=== PATIENT | male | born 1935 | race Caucasian/White ===

== ENCOUNTER 2021-03-12 21:06 | Emergency (ER) | payer MEDICARE, SELFPAY ==
--- NOTE | ~2021-03-12 | XR_ITS ---
EXAMINATION: XR chest 2V DATE: 03/12/2021 21:32 INDICATION: COPD presenting with shortness of breath TECHNIQUE: frontal and lateral views of the chest were obtained. COMPARISON: Chest radiograph dated 08/12/2017 FINDINGS: There are new focal airspace opacities in the anterior left upper lobe and posterior basilar right lo wer lobe. No pulmonary edema, pleural effusion or pneumothorax. The cardiomediastinal silhouette is n ormal. Mild scattered degenerative skeletal changes in the spine and at both shoulders. IMPRESSION: 1. New focal airspace opacity left upper and right lower lobes most likely pneumonia. Recommend radio graphic follow-up to resolution. Reviewed, dictated and finalized at location A. IMPRESSION: 1. New focal airspace opacity left upper and right lower lobes most likely pneu monia. Recommend radiographic follow-up to resolution.
[2021-03-12 21:09] VITALS: BP 126/97; PULSE 117; RESP 28; TEMP 36.8; O2SAT 94
--- NOTE | 2021-03-12 21:14 | ECG_ITS ---
Measurements Intervals [place] Rate: 114 P: 71 [place]: 145 QRS: -84 QRSD: 106 T: 83 QT: 335 QTc: 463 Interpretive Statements SINUS TACHYCARDIA INCOMPLETE RIGHT BUNDLE BRANCH BLOCK LEFT ANTERIOR FASCICULAR BLOCK BORDERLINE ST-T WAVE ABNORMALITY- ANTEROLAT/HIGH LAT LEADS BASELINE ARTIFACT- II, III, AVR, AVF, V1-V6 ABNORMAL ECG Electronically Signed On 03-13-2021 8:43:40 CDT by Gian Rivera D.O.
[2021-03-12 21:24] LABS: Basophils Percent Auto 0.2 % (0.2-1.2); Eosinophils Percent Auto 0.2 % (0-4.4); Hematocrit 49.4 % (42.0-52.0); Hemoglobin 16.2 g/dL (14.0-18.0); Immature Granulocyte Absolute 0.08 K/mm3 (0.00-0.031); Immature Granulocyte Percent A 0.5 % (0-0.5); Lymphocytes Absolute Auto 1.03 K/mm3 (0.9-3.2); Lymphocytes Percent Auto 5.8 % (18.3-44.2); Mean Corpuscular HGB Conc 32.8 g/dl (32-36); Mean Corpuscular Hemoglobin 31.5 pg (26-34); Mean Corpuscular Volume 95.9 fl (80-100); Mean Platelet Volume 9.5 fl (7.4-10.4); Monocytes Percent Auto 5.8 % (2.6-8.5); Neutrophils Absolute Auto 15.5 K/mm3 (1.3-6.7); Neutrophils Percent Auto 87.5 % (45.5-73.1); Platelet Count Result 339 k/mm3 (150-375); Red Blood Count 5.15 M/mm3 (4.6-6.20); Red Cell Distribution Width 12.3 % (11.5-14.5); White Blood Count 17.7 K/mm3 (4.5-10.0)
[2021-03-12 21:35] LABS: Anion Gap 9 mmol/L (8-16); Blood Urea Nitrogen 16 mg/dL (9-20); Calcium 9.9 mg/dL (8.4-10.2); Carbon Dioxide 32 mmol/L (22-30); Chloride 100 mmol/L (98-107); Estimated CRCL calculation 35 ml/min; Estimated Glomerular Filt Rate 48; Glucose 116 mg/dL (75-110); Potassium 3.6 mmol/L (3.4-5.0); Sodium 141 mmol/L (137-145)
[2021-03-12] MEDS: methylPREDNISolone SOD SUCC 125 MG VIAL IV PUSH (21:39)
[2021-03-12] MEDS: ALBUTEROL SULFATE NEB 2.5 MG/0.5 ML INH 5 MG INHALATION (21:43)
[2021-03-12 21:44] VITALS: PULSE 104; RESP 22
[2021-03-12] MEDS: IPRATROPIUM BR 0.02% INH SOLN 0.5 MG/2.5 ML VIAL INHALATION (21:44)
[2021-03-12 21:54] LABS: Alanine Aminotransferase 19 U/L (4-50); Albumin Level 4.8 g/dL (3.5-5.1); Alkaline Phosphatase 113 U/L (38-126); Aspartate Amino Transferase 42 U/L (17-59); Bilirubin,Total 1.3 mg/dL (0.2-1.3)
[2021-03-12 21:56] LABS: Lactic Acid Reflex 1.1 mmol/L (0.7-2.1)
[2021-03-12 21:59] VITALS: PULSE 105; RESP 20
[2021-03-12 22:06] LABS: NT Pro B Type Natriuretic Pept 372 PG/ML (5-100); Troponin I < 0.012 ng/mL (0.000-0.034)
[2021-03-12 22:56] VITALS: BP 113/65; PULSE 94; RESP 20; O2SAT 95
--- NOTE | 2021-03-13 00:31 | ED.GENADULT ---
HPI - General Adult General Chief complaint: Shortness of Breath/Dyspnea Stated complaint: SOB Time Seen by Provider: 03/12/21 21:15 History of Present Illness HPI narrative: Patient is a 85-year-old gentleman who presents the emergency department with chief complaint of shortness of breath. The patient reports he has history of COPD reports that he today noticed that he got a little bit more short of breath he had a little bit of a cough. The patient states that been nonproductive denies fever does report that he had to increase his oxygen by about 1 L. Patient states that this been several years since he is required admission the patient states that he has not been exposed to Covid nor has he been vaccinated. Related Data Allergies Allergy/AdvReac Type Severity Reaction Status Date / Time Contrast Media Allergy Mild Rash Uncoded 08/31/14 14:25 Review of Systems Review of Systems: Narrative: A 10 system review of systems was completed on the patient and is negative except for what is stated in the HPI. Nursing and ancillary documentation was reviewed. PMFSH Comments Past medical history significant for COPD the patient is on home oxygen. Social history the patient is a former smoker and quit many years ago Exam Narrative: Exam Narrative: GENERAL: Well-appearing, well-nourished, and in no acute distress. HEAD: Normocephalic, atraumatic. EYES: PERRLA and EOMI. ENT: Nares clear, no rhinorrhea or epistaxis. Mucous membranes moist. NECK: Supple. CHEST: Clear to auscultation. No respiratory distress. HEART: Regular rate and rhythm. No murmur heard. Normal peripheral pulses. ABDOMEN: Soft, nontender, nondistended, normal active bowel sounds. EXTREMITIES: Normal range of motion. No edema. SKIN: Warm, dry, no rash. NEURO: No focal deficits. Alert and oriented x3. PSYCH: Normal mood and affect. Course Vital Signs Vital signs: Vital Signs Temperature 36.8 C 03/12/21 21:09 Pulse Rate 117 H 03/12/21 21:09 Respiratory Rate 28 H 03/12/21 21:09 Blood Pressure 126/97 H 03/12/21 21:09 Pulse Oximetry 94 03/12/21 21:09 Temperature 36.8 C 03/12/21 21:09 Pulse Rate 94 03/12/21 22:56 Respiratory Rate 20 03/12/21 22:56 Blood Pressure 113/65 04/17/21 22:56 Pulse Oximetry 95 03/12/21 22:56 Medical Decision Making Vital Signs Vital Signs: Vital Signs Temperature 36.8 C 03/12/21 21:09 Pulse Rate 117 H 03/12/21 21:09 Respiratory Rate 28 H 03/12/21 21:09 Blood Pressure 126/97 H 03/12/21 21:09 Pulse Oximetry 94 03/12/21 21:09 Temperature 36.8 C 03/12/21 21:09 Pulse Rate 94 03/12/21 22:56 Respiratory Rate 20 03/12/21 22:56 Blood Pressure 113/65 03/12/21 22:56 Pulse Oximetry 95 03/12/21 22:56 Lab Data Result diagrams: 03/12/21 21:19 03/12/21 21:19 Labs: Lab Results 03/12/21 03/12/21 03/12/21 Range/Units 21:19 21:19 21:19 WBC 17.7 H (4.5-10.0) K/mm3 RBC 5.15 (4.6-6.20) M/mm3 Hgb 16.2 (14.0-18.0) g/dL Hct 49.4 (42.0-52.0) % MCV 95.9 (80-100) fl MCH 31.5 (26-34) pg MCHC 32.8 (32-36) g/dl RDW 12.3 (11.5-14.5) % Plt Count 339 (150-375) k/mm3 MPV 9.5 (7.4-10.4) fl Immature Gran % (Auto) 0.5 (0-0.5) % Neut % (Auto) 87.5 H (45.5-73.1) % Lymph % (Auto) 5.8 L (18.3-44.2) % [place] % (Auto) 5.8 (2.6-8.5) % Eos % (Auto) 0.2 (0-4.4) % Baso % (Auto) 0.2 (0.2-1.2) % Lymph # (Auto) 1.03 (0.9-3.2) K/mm3 [place] # (Auto) 1.0 H (0.1-0.6) K/mm3 Eos # (Auto) 0.0 (0-0.3) K/mm3 Baso # (Auto) 0.0 (0.0-0.1) K/mm3 Abs Immat Gran (auto) 0.08 H (0.00-0.031) K/mm3 Absolute Neuts (auto) 15.5 H (1.3-6.7) K/mm3 Absolute Nucleated RBC 0.0 (0.0-0.012) K/mm3 Nucleated RBC % 0.0 (0.0-0.2) % Sodium 141 (137-145) mmol/L Potassium 3.6 (3.4-5.0) mmol/L Chloride 100 (98-107) mmol/L Carbon Dioxide 32 H (22-30) mmol/L Anio
[2021-03-13] MEDS: ALBUTEROL SULFATE (*SP) INHALER 2 PUFF INHALATION (00:52)
[2021-03-13 01:02] VITALS: BP 108/64; PULSE 98; RESP 20; TEMP 36.8; O2SAT 95
== END 2021-03-13 01:03 | disposition home or self-care (01) ==
PROVIDERS: Emergency Provider Emergency Medicine; PCP Family Medicine
DX: J44.1 Chronic obstructive pulmonary disease with (acute) exacerbation (principal); J18.9 Pneumonia, unspecified organism; J44.0 Chronic obstructive pulmonary disease with (acute) lower respiratory infection; Z99.81 Dependence on supplemental oxygen; I45.2 Bifascicular block; R00.0 Tachycardia, unspecified; R94.31 Abnormal electrocardiogram [ECG] [EKG]; Z87.891 Personal history of nicotine dependence
CPT/HCPCS: 36415; 71046; 80048; 80076; 83605; 83880; 84484; 85025; 87040; 93005; 94640; 96374; 99284; A9270; J2930

== ENCOUNTER → 2021-04-19 09:31 | Outpatient (CLI) | payer MEDICARE, SELFPAY ==
--- NOTE | ~2021-04-19 | CT_ITS ---
EXAMINATION: CT diagnostic chest wo con DATE: 04/19/2021 09:53 INDICATION: COPD, pneumonia, history of kidney and colon cancer TECHNIQUE: Computed tomography (CT) of the chest was performed without intravenous contrast. The dose -length product (DLP) was 373.57 mGy-cm. Automated exposure control and iterative reconstruction tech [employer] were employed. COMPARISON: 09/01/2014; chest radiograph, 03/12/2021 FINDINGS: There is moderate emphysema. There are airspace opacities of the left upper lobe. Airspace opacity appears slightly improved compared to the radiograph but direct comparison is difficult. Ther e is an area of chronic scarring in the right lower lobe. No pleural effusion or pneumothorax is iden tified. No pathologically enlarged thoracic lymph nodes are identified. The heart size is normal. Gregg cified coronary artery atherosclerosis is noted. There are healed right-sided rib fractures. IMPRESSION: 1. Left upper lobe airspace opacities with probable slight improvement compared to the recent chest r adiograph, likely resolving infection. Recommend follow-up CT in three months as underlying malignanc y could be obscured. 2. Moderate emphysema. Reviewed, dictated and finalized at location A. IMPRESSION: 1. Left upper lobe airspace opacities with probable slight improvement compared to the recent chest radiograph, likely resolving infection. Recommend follow-u p CT in three months as underlying malignancy could be obscured. 2. Moderate emphysema.
== END ==
PROVIDERS: PCP Family Medicine; Visit Provider Family Medicine
DX: J18.9 Pneumonia, unspecified organism (principal); J43.9 Emphysema, unspecified
CPT/HCPCS: 71250

== ENCOUNTER → 2021-08-10 09:41 | Outpatient (CLI) | payer MEDICARE, SELFPAY ==
--- NOTE | ~2021-08-10 | CT_ITS ---
EXAMINATION: CT diagnostic chest wo con EXAM DATE: 08/10/2021 14:27 INDICATION: Pneumonia follow-up. Shortness of breath. Colon and kidney cancer. TECHNIQUE: Spiral CT of the chest without contrast. Axial, coronal and sagittal images of the chest were reviewed. Coronal maximum intensity pixel images of chest reviewed. The dose-length product ( DLP) for this examination was 287 mGy-cm. The exposure was tailored according to patient size (auto mA exposure control), and iterative reconstruction (ASIR) was used as additional dose reduction techn ique. Comparison is made to prior examination from 04/19/2021. FINDINGS: There is enlargement of previously seen left upper lobe opacity with ill-defined margins, confluent region measuring about 3 x 4 cm today. Pneumonia should have resolved by this time. Differe ntial diagnosis includes cancer, cryptogenic organizing pneumonia. There is mild emphysema. Small pericardial effusion. Tracheobronchial tree is patent. There is no mediastinal, hilar or axi llary lymphadenopathy. There is no pneumothorax. Heart normal in size. There is moderate rachel ry arterial calcification, arterial sclerosis. There is small sliding gastroesophageal hiatal hernia. There is thoracic spondylosis without osteoblastic or osteolytic lesions identified. IMPRESSION: 1. Increase in size of left upper lobe opacity which increases likelihood of this being malignancy. CT-guided biopsy recommended. 2. Mild emphysema. I left a message for Dr. Paul at 08/10/2021 13:51 CDT. I provided my direct number for call back t o discuss findings in this case. Reviewed, dictated and finalized at location B. IMPRESSION: 1. Increase in size of left upper lobe opacity which increases likelihood of t his being malignancy. CT-guided biopsy recommended. 2. Mild emphysema. I left a message for Dr. Paul at 08/10/2021 13:51 CDT. I provided my direct number for call back to discuss findings in this case.
== END ==
PROVIDERS: PCP Family Medicine; Visit Provider Family Medicine
DX: J18.9 Pneumonia, unspecified organism (principal)
CPT/HCPCS: 71250

== ENCOUNTER → 2021-08-16 03:37 | Outpatient (CLI) | payer MEDICARE, SELFPAY ==
[2021-08-16 18:18] LABS: SARS-CoV-2 RNA PCR Negative
== END ==
PROVIDERS: PCP Family Medicine; Visit Provider Radiology Diagnostic Radiology
DX: Z01.812 Encounter for preprocedural laboratory examination (principal); Z20.822 Contact with and (suspected) exposure to COVID-19
CPT/HCPCS: C9803; U0003; U0005

== ENCOUNTER 2021-08-19 09:09 | Outpatient (CLI) | payer MEDICARE, SELFPAY ==
[2021-08-15 09:40] VITALS: BMI 26.4
--- NOTE | ~2021-08-19 | CT_ITS ---
EXAMINATION: Consultation CT DATE: 08/19/2021 The patient presented for a lung biopsy for his left upper lobe mass. He is on home oxygen, and I do not consider him a candidate for percutaneous biopsy due to the high risk of life-threatening pneumot horax. In my opinion, the mass may be primary lung cancer or less likely infection. I discussed this with the patient, and he understood. I encouraged the patient to discuss options with his physician. For example, a 3-month CT may change the probability of cancer thereby allowing for management withou t a biopsy. Reviewed, dictated and finalized at location A.
[2021-08-19 10:01] LABS: INR 0.9; Prothrombin Time 12.4 Seconds (11.1-14.7)
[2021-08-19 12:37] LABS: Mean Platelet Volume 10.1 fl (7.4-10.4); Platelet Count Result 295 k/mm3 (150-375)
== END 2021-08-19 09:10 | disposition home or self-care (01) ==
PROVIDERS: PCP Family Medicine; Visit Provider Radiology Diagnostic Radiology
DX: Z01.812 Encounter for preprocedural laboratory examination (principal); R93.89 Abnormal findings on diagnostic imaging of other specified body structures; Z53.09 Procedure and treatment not carried out because of other contraindication; Z99.81 Dependence on supplemental oxygen
CPT/HCPCS: 36415; 85049; 85610; 99199

== ENCOUNTER → 2022-02-06 10:00 | Outpatient (CLI) | payer MEDICARE, SELFPAY ==
--- NOTE | ~2022-02-06 | CT_ITS ---
EXAMINATION:CT diagnostic chest wo con DATE: 02/06/2022 10:13 INDICATION: Lung mass. TECHNIQUE: Computed tomography (CT) of the chest was performed without intravenous contrast. Automate d exposure control and iterative reconstruction technique were employed. The dose-length product (DLP ) was 105.06 mGy-cm. COMPARISON: Chest CT 08/10/2021, 04/19/2021, 09/01/2014 FINDINGS: There is severe emphysema. There is mild atelectasis bilaterally. In the left upper lobe, t here is a 7.3 x 4.5 cm predominantly solid mass, increased from 6.2 x 4.5 cm. There are multiple new nodules in left upper lobe measuring up to 6 mm. There are 10 mm and 5 mm nodules in left lower lobe with interval worsening. No pleural effusion. The heart size is normal. There are coronary artery mariana cifications. No pericardial effusion. There is mild bilateral gynecomastia. There is a small sliding hiatal hernia. There are changes of right nephrectomy. There is mild thoracic spondylosis. There is m ild chronic anterior wedging of T11-L1 vertebral bodies. IMPRESSION: 1. Worsened mass in left lung upper lobe and worsened pulmonary nodules, consistent with primary bron chogenic carcinoma and metastatic disease. 2. Severe emphysema. Reviewed, dictated and finalized at location A. IMPRESSION: 1. Worsened mass in left lung upper lobe and worsened pulmonary nodules, consis tent with primary bronchogenic carcinoma and metastatic disease. 2. Severe emphysema.
== END ==
PROVIDERS: PCP Physician Assistant; Visit Provider Physician Assistant
DX: R91.8 Other nonspecific abnormal finding of lung field (principal); J43.9 Emphysema, unspecified; M47.814 Spondylosis without myelopathy or radiculopathy, thoracic region; M48.55XA Collapsed vertebra, not elsewhere classified, thoracolumbar region, initial encounter for fracture
CPT/HCPCS: 71250

== ENCOUNTER → 2022-07-10 13:55 | Outpatient (CLI) | payer MEDICARE, SELFPAY ==
--- NOTE | ~2022-07-10 | CT_ITS ---
EXAMINATION: CT abdomen pelvis wo con DATE: 07/10/2022 14:17 INDICATION: Diarrhea. Occasional generalized abdominal pain. History of colon and kidney cancer. TECHNIQUE: Computed tomography (CT) of the abdomen and pelvis was performed without intravenous contr ast. Automated exposure control and iterative reconstruction technique were employed. Exam dose: 663 .31 mGy-cm total exam DLP. COMPARISON: 09/01/2014 CT chest abdomen pelvis FINDINGS: There is a spiculated 1.5 cm posterior basilar right lower lobe lung mass and several adjac ent smaller spiculated masses measuring up to approximately 8.8 and 7.4 mm dimension. Primary lung ma lignancy with satellite metastases or multiple synchronous lung cancers are suspected; less likely wo uld be metastases from primary neoplasm elsewhere. Emphysematous changes of the lungs. Normal heart size. Trace pericardial fluid. Small sliding hiatal hernia. There are at least several 5 mm or smaller scattered hepatic hypoattenuating lesions, too small to de finitively characterize. Differential diagnosis includes hepatic cysts, hemangiomas and/or metastases . The gallbladder is present. No gallbladder wall thickening or pericholecystic fluid or fat stranding. No bile duct or pancreatic duct dilatation. Several pancreatic calcifications, consistent with chron ic pancreatitis. Normal splenic size. Normal morphology of the adrenal glands. Status post right nephrectomy. No left renal mass lesion. There is left renal artery calcification. No left urinary tract calculus o r hydroureteronephrosis is detected. There is moderate diffuse thickening of the urinary bladder wall, likely due to prominent prostatomeg geovani. There are some prostate calcifications as well. Diverticulosis of the colon; no CT evidence of diverticulitis. No bowel obstruction, bowel wall thick ening, pneumatosis or intraperitoneal free air is detected. There is atherosclerotic calcification of the abdominal aorta but no aneurysm. No intraperitoneal or retroperitoneal or pelvic mass lesion or adenopathy or ascites is detected. Osteopenia. Moderate L1 compression fracture deformity. Severe degenerative disc disease at L5-S1. IMPRESSION: Multiple spiculated left lower lobe masses, highly suggestive of lung cancer, possibly s ynchronous and/or metastatic. The largest measures 1.5 cm. Emphysema Small sliding hiatal hernia Nonspecific 5 mm or smaller occasional hepatic hypoattenuating lesions, too small to definitively fani racterize Status post right nephrectomy Diverticulosis of the colon Compression fracture of L1 Severe degenerative disc disease at L5-S1 Reviewed, dictated and finalized at Location A. Reviewed, dictated and finalized at location A. IMPRESSION: Multiple spiculated left lower lobe masses, highly suggestive of l moshe cancer, possibly synchronous and/or metastatic. The largest measures 1.5 cm . Emphysema Small sliding hiatal hernia Nonspecific 5 mm or smaller occasional hepatic hypoattenuating lesions, too sma ll to definitively characterize Status post right nephrectomy Diverticulosis of the colon Compression fracture of L1 Severe degenerative disc disease at L5-S1
== END ==
PROVIDERS: PCP Physician Assistant; Visit Provider Physician Assistant
DX: R19.7 Diarrhea, unspecified (principal); J43.9 Emphysema, unspecified; K44.9 Diaphragmatic hernia without obstruction or gangrene; K57.30 Diverticulosis of large intestine without perforation or abscess without bleeding; M51.37 Other intervertebral disc degeneration, lumbosacral region; S32.010A Wedge compression fracture of first lumbar vertebra, initial encounter for closed fracture; X58.XXXA Exposure to other specified factors, initial encounter
CPT/HCPCS: 74176

== ENCOUNTER → 2022-11-02 08:40 | Outpatient (CLI) | payer MEDICARE, SELFPAY ==
--- NOTE | ~2022-11-02 | CT_ITS ---
EXAMINATION: CTA chest PE protocol DATE: 11/02/2022 09:52 INDICATION: Pleurodynia. TECHNIQUE: Computed tomography angiography (CTA) of the chest was performed with 100 mL Omnipaque-350 intravenous contrast timed to evaluate the pulmonary arteries. Coronal maximum intensity projection 3D-reconstructions were created by the technologist. Automated exposure control and iterative reconst ruction technique were employed. The dose-length product was 347.94 mGy-cm. COMPARISON: Chest CT 02/06/2022, CT abdomen and pelvis 07/10/2022 FINDINGS: There is moderate emphysema. There is mild atelectasis bilaterally. In the left upper lobe, there is an 8.0 x 8.1 cm perihilar mass. There is an 8 mm nodule in left upper lobe. There are 12 mm and 18 mm nodules in left lower lobe. No pleural effusion. There is a small sliding hiatal hernia. T he heart size is normal. There is a small pericardial effusion. There are coronary artery calcificati ons. There is no pulmonary embolus. There is bilateral gynecomastia. There are changes of right nephr ectomy. There are cysts in the liver measuring up to 6 mm. There are hypodense masses in the liver me asuring up to 1.5 cm. There is a permeative lytic lesion in anterior left third rib with pathologic f racture. There is a permeative lytic lesion of left eighth rib with healing pathologic fracture. Ther e is a lytic lesion of T4 vertebral body with pathologic compression fracture. There are lytic lesion s in T10, T11, T12, and L1 vertebral bodies. There is a worsened pathologic compression fracture of L 1. There is chronic anterior wedging of T11 vertebral body. IMPRESSION: 1. Worsened mass in left lung upper lobe, consistent with primary bronchogenic carcinoma and postobst ructive pneumonia. 2. Worsened pulmonary nodules and worsening bone lesions, consistent with metastatic disease. 3. Pathologic fractures of left third and eighth ribs and T4 and L1 vertebral bodies. 4. Worsened liver masses, likely metastatic disease. 5. No pulmonary embolus. Reviewed, dictated and finalized at location E. [employer] IMPRESSION: 1. Worsened mass in left lung upper lobe, consistent with primary bronchogenic carcinoma and postobstructive pneumonia. 2. Worsened pulmonary nodules and worsening bone lesions, consistent with metas tatic disease. 3. Pathologic fractures of left third and eighth ribs and T4 and L1 vertebral b odies. 4. Worsened liver masses, likely metastatic disease. 5. No pulmonary embolus.
[2022-11-02 09:44] LABS: Estimated Glomerular Filt Rate 44
== END ==
PROVIDERS: PCP Family Medicine; Visit Provider Family Medicine
DX: R07.81 Pleurodynia (principal); M84.48XA Pathological fracture, other site, initial encounter for fracture; R91.8 Other nonspecific abnormal finding of lung field
CPT/HCPCS: 71275; Q9967

== ENCOUNTER 2023-01-28 13:02 | Observation (INO) | payer MEDICARE, SELFPAY ==
[2023-01-28] VITALS (8 sets, daily range): BP systolic 111–123; BP diastolic 70–82; PULSE 94–109; RESP 18–22; TEMP 36.2–36.6; O2SAT 97–98; BMI 21.1
--- NOTE | ~2023-01-28 | CT_ITS ---
EXAMINATION: CT brain wo con DATE: 01/28/2023 13:37 INDICATION: Left facial weakness. TECHNIQUE: Computed tomography (CT) of the head was performed without intravenous contrast. The mA wa s adjusted according to patient size. Iterative reconstruction technique was employed. The dose-lengt h product was 605.33 mGy-cm. COMPARISON: Head CT 10/31/2007 FINDINGS: There is a small old infarct in left cerebellum. There is an infarct in right frontal lobe. There is an old infarct in the left basal ganglia. There are scattered areas of low attenuation in t he cerebral white matter, which is within normal limits for the patient's age. There is no intracrani al hemorrhage or abnormal mass lesion. The ventricles are normal in size. There are likely changes of left ocular lens replacement surgery. There is mild mucosal thickening in the paranasal sinuses. The mastoid air cells are normal. IMPRESSION: 1. Infarct in right frontal lobe, likely acute or subacute. 2. Small old infarcts in the left basal ganglia and left cerebellum. Reviewed, dictated and finalized at location A. DATA ARCHITECT
--- NOTE | ~2023-01-28 | XR_ITS ---
EXAMINATION: XR chest 2V DATE: 01/28/2023 13:44 INDICATION: Left facial weakness. Slurred speech. TECHNIQUE: Frontal and lateral views of the chest were obtained. COMPARISON: Chest 2 views 03/12/2021, chest CT 11/02/2022 FINDINGS: There is a mass in left upper lobe. There is mild atelectasis in left upper lobe. There are nodules in basilar left lower lobe. No pleural effusion or pneumothorax. The heart size is normal. T here is a pathologic burst fracture of T4. IMPRESSION: 1. Mass in left lung upper lobe and nodules in left lung lower lobe, consistent with primary bronchog enic carcinoma and metastatic disease. 2. Pathologic burst fracture of T4 again seen. Reviewed, dictated and finalized at location A. TOMETRIST IMPRESSION: 1. Mass in left lung upper lobe and nodules in left lung lower lobe, consistent with primary bronchogenic carcinoma and metastatic disease. 2. Pathologic burst fracture of T4 again seen.
--- NOTE | 2023-01-28 13:23 | ECG_ITS ---
Measurements Intervals [place] Rate: 93 P: 80 [place]: 134 QRS: -84 QRSD: 98 T: 87 QT: 369 QTc: 460 Interpretive Statements SINUS RHYTHM LEFT ANTERIOR FASCICULAR BLOCK BORDERLINE T WAVE ABNORMALITY- HIGH LATERAL LEADS BASELINE ARTIFACT- I, III, AVR, AVL, AVF ABNORMAL ECG COMPARED TO ECG 03/12/2021 21:13:29 SINUS RHYTHM NOW PRESENT Electronically Signed On 01-28-2023 17:43:30 [employer] by Gian Rivera D.O.
[2023-01-28] MEDS: MORPHINE SULFATE (*CRX) 4 MG/ML INJ IV PUSH (14:15)
[2023-01-28 14:19] LABS: Basophils Absolute Auto 0.1 K/mm3 (0.0-0.1); Basophils Percent Auto 0.4 % (0.2-1.2); Eosinophils Absolute Auto 0.6 K/mm3 (0-0.3); Eosinophils Percent Auto 4.3 % (0-4.4); Hemoglobin 12.8 g/dL (14.0-18.0); Immature Granulocyte Absolute 0.17 K/mm3 (0.00-0.031); Immature Granulocyte Percent A 1.2 % (0-0.5); Lymphocytes Absolute Auto 0.84 K/mm3 (0.9-3.2); Mean Corpuscular Hemoglobin 29.7 pg (26-34); Mean Corpuscular Volume 92.8 fl (80-100); Mean Platelet Volume 9.2 fl (7.4-10.4); Monocytes Absolute Auto 1.1 K/mm3 (0.1-0.6); Neutrophils Absolute Auto 11.3 K/mm3 (1.3-6.7); Neutrophils Percent Auto 80.1 % (45.5-73.1); Platelet Count Result 235 k/mm3 (150-375); Red Blood Count 4.31 M/mm3 (4.6-6.20); Red Cell Distribution Width 14.2 % (11.5-14.5); White Blood Count 14.1 K/mm3 (4.5-10.0)
--- NOTE | 2023-01-28 14:20 | ED.NEUROSD ---
HPI - Neuro Symptoms/Deficit General Chief Complaint: Neuro Symptoms/Deficit Stated Complaint: neuro symptoms Time Seen by Provider: 01/28/23 13:05 History of Present Illness HPI Narrative: Patient is an 87-year-old male who presents to the ER with concerns for CVA. Last known well yesterday evening. Patient did take some medicine at 6 AM. He woke up around 9 AM and it was noted that he had left facial weakness. He is having difficulty speaking. Patient recently signed paperwork with hospice due to him having COPD and metastatic lung cancer. He is known to have vertebral compression fractures from bony mets. Though paperwork has been signed in the last 3 days has not yet been processed and so he was instructed to come to the ER. He is affiliated with [facility]. Denies arm or leg weakness. No expressive aphasia. Related Data Home Medications Medication Instructions Recorded Confirmed atorvastatin 40 mg tablet 40 mg PO QAM 08/15/21 08/15/21 finasteride 5 mg tablet 5 mg PO DAILY 08/15/21 08/15/21 fluticasone 250 mcg-salmeterol 50 1 inh inhalation BID 08/15/21 08/15/21 mcg/dose blistr powdr for inhalation (Wixela Inhub) indapamide 1.25 mg tablet 1.25 mg PO DAILY 08/15/21 08/15/21 lactobacillus combination no.4 3 3,000 mmu cells PO DAILY 08/15/21 08/15/21 billion cell capsule (Probiotic) lisinopril 5 mg tablet 5 mg PO PRN PRN Hypertension 08/15/21 08/15/21 omeprazole 20 mg capsule,delayed 20 mg PO DAILY 08/15/21 08/15/21 release potassium chloride 20 mEq 20 meq PO DAILY 08/15/21 08/15/21 tablet,extended release(part/cryst) Allergies Allergy/AdvReac Type Severity Reaction Status Date / Time Contrast Media Allergy Mild Rash Uncoded 08/15/21 09:23 Review of Systems Review of Systems: All systems reviewed & are unremarkable except as noted in HPI and below Constitutional: Constitutional: Denies chills and Denies fever(s) Cardiovascular: Cardiovascular: Denies chest pain, Denies rapid heart rate and Denies radiating jaw, neck or arm pain Respiratory: Respiratory: Denies cough and Denies dyspnea Gastrointestinal: Gastrointestinal: Denies abdominal pain, Denies nausea and Denies vomiting Neurologic: Denies headache(s), Reports focal weakness and Denies numbness Comments: Dysarthria PMFSH Past Medical History Medical History (Updated 01/28/23 @ 16:39 by James Sweet MD) Stage 4 lung cancer Exam Narrative: GENERAL: Chronically ill-appearing, well-nourished, and in no acute distress. HEAD: Normocephalic, atraumatic. EYES: PERRL and EOMI. ENT: Mucous membranes moist. Left facial droop. NECK: Supple. CHEST: Clear to auscultation. No respiratory distress. HEART: Regular rate and rhythm. Normal peripheral pulses. ABDOMEN: Soft, nontender, nondistended. EXTREMITIES: Normal range of motion. No edema. SKIN: Warm, dry, no rash. NEURO: Left-sided facial droop with slurred speech. No upper or lower extremity drift. Alert and oriented x3. Course Course Emergency Course: Patient outside the window for tPA. Family and patient do not want aggressive interventions as he is supposed to be starting hospice. Plan is to admit for observation and so he can have a swallow study and PT/OT to make sure he has all of his needs filled when he goes on hospice. Patient accepted by the hospitalist service. Vital Signs Vital signs: Vital Signs Temperature 97.9 F 01/28/23 13:04 Pulse Rate 109 H 01/28/23 13:04 Respiratory Rate 20 01/28/23 13:04 Blood Pressure 121/80 01/28/23 13:04 Pulse Oximetry 97 01/28/23 13:04 Oxygen Delivery Nasal Cannula 01/28/23 13:04 Oxygen Flow Rate 2 01/28/23 13:04 Temperature 97.9 F 01/28/23 13:04 Pulse Rate 94 01/28/23 15:44 Respiratory Rate 18 01/28/23 15:44 Blood Pressure 123/77 01/28/23 15:44 Pulse Oximetry 98 01/28/23 15:44 Oxygen Delivery Nasal Cannula 01/28/23 13:04 Oxygen Flow Rate 2 01/28/23 13:09 [facility] - Neuro S
[2023-01-28 14:29] LABS: INR 1.2; Prothrombin Time 14.3 Seconds (11.1-14.7)
[2023-01-28 14:30] LABS: Partial Thromboplastin Time 31.7 SECONDS (22.3-36.8)
[2023-01-28 14:39] LABS: Alanine Aminotransferase 26 U/L (6-50); Albumin Level 3.6 g/dL (3.5-5.1); Alkaline Phosphatase 770 U/L (38-126); Anion Gap 5 mmol/L (8-16); Aspartate Amino Transferase 100 U/L (17-59); Bilirubin,Total 0.7 mg/dL (0.2-1.3); Blood Urea Nitrogen 25 mg/dL (9-20); Calcium 8.8 mg/dL (8.4-10.2); Carbon Dioxide 31 mmol/L (22-30); Chloride 97 mmol/L (98-107); Estimated CRCL calculation 48 ml/min; Estimated Glomerular Filt Rate > 60; Glucose 119 mg/dL (65-110); Potassium 3.9 mmol/L (3.4-5.0); Sodium 133 mmol/L (137-145)
--- NOTE | 2023-01-28 14:45 | PM.IMHP ---
H&P: HPI History of Present Illness Date/Time: 01/28/23 14:45 Chief Complaint: Slurred speech and left face droop. Narrative: This is a very pleasant 87-year-old male with stage IV lung cancer, COPD, hypertension, and other comorbidities who presented to the emergency department via EMS from home for evaluation of slurred speech and left face droop. Patient provides the following history. His son and daughter who are at bedside provides additional information with the patient's permission. He was diagnosed with lung cancer couple of years ago in opted against treatment. He has lost about 40 lb since that time and his appetite has become increasingly poor. He started to develop skeletal pain and was found to have bony metastases for which he was initially started on oxycodone though that does not seem to help him much and he has now been taking acetaminophen and THC oil. His daughter and son are now helping care for him in his own house and they have recently reached out to [facility]. In any event, daughter wakes him up at 6 am every morning to give him his scheduled Tylenol and he seemed to do okay at that time. At about 09:00 she checked in on him and thought the left side of his mouth appeared droopy. At 10:00 she got him up for the day and gave him his THC oil. It was at that time that he seemed to be having slurred speech and patient reports that his tongue feels thick. They phoned [facility] who referred him to the ER as they have not yet completed his paperwork. Brain CT showed an infarct in the right frontal lobe which is likely acute or subacute; small old infarcts were noted in the left basal ganglia and cerebellum. This was discussed with the patient and his children and they agree that pursuing a stroke workup would be moot point as he is going to be signing up with hospice in the next couple of days. There is some reluctance for discharge home today however given the new stroke; they would like to observe him overnight to ensure it does not worsen as he may need more care than what they can provide at home. At the time my evaluation the patient has no specific complaints. He denies vertigo, visual changes, paresthesias, focal weakness, and difficulty swallowing. Review of Systems Review of Systems: Twelve systems were reviewed. No fever, chills, or sweats. He does have a wet sounding cough which is rarely productive. Daughter is a retired respiratory therapist and she has been encouraging him to use incentive spirometry and Acapella valve though he does not really like that. He denies chest pain shortness and breath. Appetite has been poor with some nausea. He denies vomiting and diarrhea. Except as documented, all other systems were reviewed and are negative. 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 Surgical History Surgical History (Updated 01/28/23 @ 21:06 by Ana María Lockhart PA-C) History of cataract extraction History of colonoscopy with polypectomy (1990) Malignant polyp, completely excised. History of right nephrectomy (06/2004) Family History Family History (Updated 01/28/23 @ 21:06 by Ana María Lockhart PA-C) Father Heart disease Colon cancer Mother Heart disease Social History Social History (Updated 01/28/23 @ 21:08 by Ana María Lockhart PA-C) Social History: Surrogate medical decision maker: Jayson Hamilton (son) or Josselyn Ladd (daughter). Code status: Do not resuscitate. Smoking packs per day: 2.5 Smoking cigarettes per day: 50.0 Years smoked: 30 Smoking pack-years: 75.00 Smoking status: Former smoker Tobacco type: cigarettes Additional smok
[2023-01-28 14:56] LABS: Troponin I 0.054 ng/mL (0.000-0.034)
--- NOTE | 2023-01-28 16:05 | ADMGEN ---
This patient, Bakari Hamilton, was admitted to Medical Room 342-01. Patient/family oriented to hospital policies and general routines including ID bracelet, bed and alarms, visiting hours, pain management, procedures, bathroom and other care routines, personal items, smoking policy, room service/diet, and visiting hours. Information on how to activate the Rapid Response Team has been discussed. Patient/Family are encouraged to report perceived risks to care and to ask questions if they do not understand what they are told or what they should do.
[2023-01-28] MEDS: ASPIRIN 81 MG CHEWABLE TABLET 324 MG PO (17:39)
[2023-01-28] MEDS: SODIUM CHLORIDE 0.9% IV 1,000 ML 125 ML IV CONT (17:48)
[2023-01-29] VITALS: PULSE 94
[2023-01-29] MEDS: SODIUM CHLORIDE 0.9% IV 1,000 ML 125 ML IV CONT ×2 (05:18→09:26)
[2023-01-29] MEDS: ONDANSETRON INJ 4 MG/2 ML VIAL IV PUSH (05:25)
[2023-01-29 06:00] VITALS: BP 114/60; PULSE 84; RESP 20; TEMP 36.6; O2SAT 98
[2023-01-29 06:15] LABS: Glucose Point of Care 111 mg/dl (65-105)
[2023-01-29 07:05] VITALS: PULSE 90; RESP 18; O2SAT 90
[2023-01-29] MEDS: FLUTICASONE/SALMETEROL 115-21 MCG INHALER 1 PUFF 2 PUFF INHALATION (07:05)
[2023-01-29] MEDS: ASPIRIN 81 MG ENTERIC TABLET PO (09:27)
[2023-01-29] MEDS: ATORVASTATIN 40 MG TABLET PO (09:28)
[2023-01-29] MEDS: FINASTERIDE 5 MG TABLET PO (09:28)
[2023-01-29] MEDS: ACIDOPHILUS/BULGARICUS CHEWABLE TABLET 1 TABLET BY MOUTH (09:28)
[2023-01-29] MEDS: PANTOPRAZOLE 40 MG TABLET PO (09:28)
[2023-01-29 11:40] VITALS: BMI 21.1
--- NOTE | 2023-01-29 11:42 | PCSTNOTE ---
Please refer to the Bedside Swallow Evaluation in the EMR. Please note, silent aspiration cannot be ruled out at bedside.
[2023-01-29 14:00] VITALS: BP 133/75; PULSE 96; RESP 16; TEMP 37.1; O2SAT 95
--- NOTE | 2023-01-29 14:03 | PM.DS ---
DS: Admitting Diagnosis Discharge Date 01/29/2023 Admitting Diagnosis CVA DS: Discharge Diagnosis Discharge Diagnosis (1) Cerebrovascular accident: Code(s): I63.9 - Cerebral infarction, unspecified Status: Acute Assessment and Plan: presented all slurred speech and facial droop several hours prior to evaluation. head CT showed infarct in the right frontal lobe, acute versus subacute. D received aspirin. No further workup was pursued as patient was in the process of signing with hospice due to his metastatic lung cancer. continue aspirin 81 mg daily. He did participated in PT/ OT /is T for evaluation to ensure patient was stable to return home. No ongoing PT/ OT requirements. Speech therapy recommended soft and bite size diet which patient will continue. 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 Patient was in the process of sign with hospice prior to admission. Hospice care was finalized patient was discharged to home with hospice care DS: Summary Hospital Course Hospital Course: date of admission: 01/28/2023 date of discharge: 01/29/2023 Bakari Hamilton is an 87-year-old male with a history of colon cancer, stage IV lung cancer with bony mets, chronic respiratory failure on home oxygen, diastolic dysfunction, hypertension, hyperlipidemia, and CKD who presented to the emergency department on 01/28/2023 with complaints of left facial weakness and trouble speaking. he was in the process of signing with [facility] due to his severe COPD and metastatic lung cancer. on presentation to the ED, he was mildly tachycardic, additional vital signs were stable, WBC 14.1, BMP unremarkable, troponin mildly elevated at 0.[address] showed infarct of the right frontal lobe with old infarcts in the left basal ganglia and left cerebellum and CXR showed findings consistent with primary bronchogenic carcinoma and pathologic burst fracture of T4. He was admitted to the hospitalist service for further evaluation and management. he participated in PT/OT/ST during admission. Recommendations to continue level 6 soft and bite size diet with regular liquids. He does have poor appetite, however this has been an ongoing issue. recommend addition of dietary supplements such as Ensure. He was started on aspirin therapy for acute stroke. Further laboratory evaluation including lipid panel was deferred and statin therapy not initiated given transition to hospice care. Home hospice care was arranged and patient was discharged in hemodynamically stable condition to [facility] on 01/29/2023 Time Spent with Patient Time attestation: Total time spent providing and/or coordinating discharge services: 45 minutes Exam Narrative: General: well-nourished, chronically ill-appearing 87-year-old male, sitting up in bed, comfortable, NARD Neuro: awake, alert and oriented x4, speech clear, no focal neuro deficits noted HEENMT: normocephalic, atraumatic, EOMI, sclerae anicteric, moist oral mucosa Respiratory: clear to auscultation anteriorly, nonlabored breathing Cardio: regular rate, regular rhythm with S1-S2 Abdomen: nondistended, normoactive bowel sounds, soft, nontender to palpation Extremities: no edema, erythema, or tenderness to palpation Skin: no rashes or lesions, warm and dry Psych: appropriate mood and affect, judgment and insight intact DS: Data Data Completed and Pending Labs on day of discharge: Labs from last 24 hours 01/29/23 01/28/23 01/28/23 05:24 14:12 14:12 WBC RBC Hgb Hct MCV MCH MCHC RDW Plt Count MPV Immature Gran % (Auto) Neut % (Auto) Lymph % (Auto) [place] % (Auto) Eos % (Auto) Baso % (Auto) Lymph # (Auto) [place] # (Auto)
== END 2023-01-29 17:05 | disposition hospice, home (50) ==
LOC: ANHED 13:45 → ANH3MED 15:01
PROVIDERS: Admitting Provider Family Medicine; Emergency Provider Emergency Medicine; PCP Family Medicine; Visit Provider Physician Assistant
DX: I63.9 Cerebral infarction, unspecified (principal); C34.90 Malignant neoplasm of unspecified part of unspecified bronchus or lung; J44.9 Chronic obstructive pulmonary disease, unspecified; R91.8 Other nonspecific abnormal finding of lung field; I44.4 Left anterior fascicular block; N40.0 Benign prostatic hyperplasia without lower urinary tract symptoms; I13.10 Hypertensive heart and chronic kidney disease without heart failure, with stage 1 through stage 4 chronic kidney disease, or unspecified chronic kidney disease; N18.9 Chronic kidney disease, unspecified; J96.11 Chronic respiratory failure with hypoxia; Z99.81 Dependence on supplemental oxygen; R94.31 Abnormal electrocardiogram [ECG] [EKG]; E78.5 Hyperlipidemia, unspecified; H40.9 Unspecified glaucoma; R63.4 Abnormal weight loss; R63.0 Anorexia; M19.90 Unspecified osteoarthritis, unspecified site; Z68.21 Body mass index [BMI] 21.0-21.9, adult; Z85.038 Personal history of other malignant neoplasm of large intestine; Z85.830 Personal history of malignant neoplasm of bone; Z79.51 Long term (current) use of inhaled steroids; Z79.899 Other long term (current) drug therapy
CPT/HCPCS: 36415; 70450; 71046; 80053; 82948; 84484; 85025; 85610; 85730; 92610; 93005; 94640; 96361; 96374; 96375; 96376; 97165; 99285; A9270; G0378; J0131; J2270; J2405; J7030